=== PATIENT | female | born 1960 ===

== ENCOUNTER 2019-08-13 14:47 | Outpatient (CLI) | payer OTHER ==
[~2019-08-13] VITALS: Ht 162.6 cm; Wt 84.8 kg
[~2019-08-13 14:47] MED LIST: METHOCARBAMOL750 MG PO; MOBIC15 MG PO
== END 2019-08-13 15:36 | disposition home or self-care (01) ==
LOC: OFIC 805 14:47
PROVIDERS: ATTEND Otolaryngology
DX: H69.91 Unspecified Eustachian tube disorder, right ear (principal); H83.8X1 Other specified diseases of right inner ear; H93.8X1 Other specified disorders of right ear; R09.81 Nasal congestion; J30.89 Other allergic rhinitis